=== PATIENT | female | born 1960 | race Caucasian/White ===

== ENCOUNTER 2019-11-26 02:18 | Emergency (ER) | payer BC ==
[~2019-11-26] VITALS: Ht 154.9 cm; Wt 54.9 kg
[2019-11-26 02:18] VITALS: BP_SYST 109
--- NOTE | 2019-11-26 02:18 | NUR ---
Patient to ER bed 07 to gown for evaluation. Side rails up. Report given to АЛЕКСАНДР Macias
--- NOTE | 2019-11-26 02:48 | NUR ---
ER Dr. Harris at bedside examining patient.
[2019-11-26] MEDS ORDERED: HYDROcodone/ACETAMIN 7.5-325 MG TAB PO ONE (03:00)
[2019-11-26] MEDS ORDERED: LIDOCAINE/EPI 1% 1:100000 20 ML VIAL INJ ONE (03:00)
[2019-11-26] MEDS ORDERED: BACITRACIN 1 GM OINT TP ONE (03:00)
[2019-11-26] MEDS ORDERED: NACL 0.9% 1,000 ML IV ONE (03:22)
[2019-11-26] MEDS ORDERED: ETOMIDATE 20 MG/ 10 ML VIAL (AMIDATE) IVP ONE (03:30)
[2019-11-26] MEDS ORDERED: MORPHINE 2 MG/ML INJ. SYRINGE IVP ONE (03:45)
--- NOTE | 2019-11-26 03:48 | NUR ---
Pt moved to bed 1
--- NOTE | 2019-11-26 04:19 | NUR ---
Post reduction Xray of the rt shoulder done at bedside by jose antonio Velázquez
[2019-11-26 05:08] VITALS: BP_SYST 109
--- NOTE | 2019-11-26 05:14 | NUR ---
Patient given written and verbal discharge instructions and verbalizes understanding. ER MD Harris discussed with patient the results and treatment provided. Patient in stable condition. ID arm band removed. IV catheter removed intact and dressing applied, no active bleeding. Patient educated on pain management and to follow up with PMD. Pain Scale 0/10. Opportunity for questions provided and answered. Medication side effect fact sheet provided.
--- NOTE | 2019-11-26 05:16 | NUR ---
see moderate sedation documentaion record.
== END 2019-11-26 05:08 | disposition home or self-care (01) ==
LOC: SED 02:18
DX: S43.004A Unspecified dislocation of right shoulder joint, initial encounter (principal); S01.81XA Laceration without foreign body of other part of head, initial encounter; I10 Essential (primary) hypertension; Z79.899 Other long term (current) drug therapy; W18.39XA Other fall on same level, initial encounter; Y93.89 Activity, other specified; Y92.89 Other specified places as the place of occurrence of the external cause; Y99.8 Other external cause status
CPT/HCPCS: 12013; 23650; 73020; 73060; 99152; 99285; J2270; J3490; 96374